=== PATIENT | female | born 2000 | race Two or more races ===

== ENCOUNTER 2022-04-18 13:02 | Emergency (ER) ==
[2022-04-18] MEDS ORDERED: levETIRAcetam 500 MG/5 ML VIAL ONE (13:48)
[2022-04-18 14:28] LABS: #Eosinphils 0.1 thou/uL (0.0-0.7); #Monocytes 0.3 thou/uL (0.11-0.59); #Neutrophils 3.2 thou/uL (1.40-6.50); %Basophils 0.4 % (0.0-1.0); %Eosinophils 1.9 % (0.0-10.0); %Monocytes 5.8 % (0.0-4.0); Hemoglobin 13.6 g/dL (12.0-16.0); Mean Corpuscular HGB CONC 33.2 g/dL (32.0-36.0); Mean Corpuscular Hemoglobin 27.9 pg (25.0-35.0); Mean Corpuscular Volume 83.9 fl (78.0-98.0); Mean Platelet Volume 9.2 fL (7.4-10.4); Platelet Count 212 10x3/uL (130-400); RBC Distribution Width 12.3 % (11.5-14.5); Red Blood Cell (RBC) Count 4.86 mill/uL (4.00-5.20); White Blood Cell (WBC) Count 5.6 10x3/uL (4.8-10.8)
[2022-04-18 14:30] LABS: Bilirubin Negative (Negative); Blood, Urine Negative (Negative); Clarity Clear (Clear); Glucose, Urine (Dipstick) Normal (Negative); Ketone, Urine Negative (Negative); Leukocyte Negative Leu/uL (Negative); Nitrite Negative (Negative); Protein, Urine (Dipstick) Negative (Neg-Trace); Specific Gravity, Urine 1.013 (1.002-1.036); Urobilinogen Normal mg/dL (Less than 2)
[2022-04-18 14:31] LABS: Pregnancy Test - Urine (BHCG) Negative (Negative); Pregu Control Background? CLEAR/WHITE (CLR/WHITE); Pregu Control Bar Appear? YES (CONTROL BAR); Specific Gravity 1.013 (1.002-1.036)
[2022-04-18 14:39] LABS: Amphetamine Not Detected (NotDetected); Barbiturates Screen Not Detected (NotDetected); Benzodiazepine Screen Not Detected (NotDetected); Cocaine Metabolite Screen Not Detected (NotDetected); Methadone Not Detected (NotDetected); Methamphetamine Not Detected (NotDetected); Opiate Screen Not Detected (NotDetected); Oxycodone Screen Not Detected (NotDetected); Phencyclidine (PCP) Not Detected (NotDetected); THC/Cannabinoid Screen Detected (NotDetected); Tricyclic Screen Not Detected (NotDetected)
[2022-04-18 14:39] LABS: Prothrombin Time 14.1 sec (12.0-14.7)
[2022-04-18 14:48] LABS: Carbamazepine-Tegretol Less than 1.9 ug/mL (4.0-12.0)
[2022-04-18 16:20] LABS: Albumin 4.2 g/dL (3.5-5.0)
[2022-04-18 16:21] LABS: Chloride 110 mmol/L (98-107); Potassium 4.1 mmol/L (3.5-5.1); Sodium 139 mmol/L (136-145)
[2022-04-18 16:22] LABS: Calcium 8.8 mg/dL (7.8-10.44); Glucose 89 mg/dL (70-105)
[2022-04-18 16:23] LABS: Globulin 3.1 g/dL (2.4-3.5); Protein, Total 7.3 g/dL (6.0-8.3)
[2022-04-18 16:24] LABS: Anion Gap 12 mmol/L (10-20); Bilirubin, Total 0.3 mg/dL (0.2-1.2); Carbon Dioxide 21 mmol/L (22-29)
[2022-04-18 16:25] LABS: Alkaline Phosphatase 52 U/L (40-100)
[2022-04-18 16:26] LABS: Calc. Creatinine Clearance 0 mL/min (70-130); Estimated GFR 117
[2022-04-18 16:27] LABS: BUN (Urea Nitrogen) 7 mg/dL (7.0-18.7)
[2022-04-18 16:28] LABS: AST (SGOT) 15 U/L (5-34)
[2022-04-18 16:29] LABS: ALT (SGPT) 9 U/L (8-55)
== END 2022-04-18 16:05 | disposition home or self-care (01) ==
LOC: EDBD 13:02 → ERS 13:02
DX: R56.9 Unspecified convulsions (principal)
CPT/HCPCS: 36415; 51701; 70450; 72125; 80053; 80156; 80164; 80177; 80306; 81003; 81025; 83605; 84146; 85025; 85610; 85730; 94760; 96372; 96374; J1953

== ENCOUNTER 2022-05-04 10:44 | Emergency (ER) | payer OTHER, SELFPAY ==
[2022-05-04 12:05] LABS: #Eosinphils 0.1 thou/uL (0.0-0.7); #Lymphocytes 1.8 thou/uL (1.20-3.40); #Monocytes 0.4 thou/uL (0.11-0.59); #Neutrophils 3.4 thou/uL (1.40-6.50); %Basophils 0.4 % (0.0-1.0); %Eosinophils 1.6 % (0.0-10.0); %Lymphocytes 31.1 % (28.0-48.0); %Monocytes 6.4 % (0.0-4.0); %Neutrophils 60.5 % (31.0-61.0); Hemoglobin 13.2 g/dL (12.0-16.0); Mean Corpuscular HGB CONC 32.8 g/dL (32.0-36.0); Mean Corpuscular Hemoglobin 27.3 pg (25.0-35.0); Mean Corpuscular Volume 83.1 fl (78.0-98.0); Mean Platelet Volume 7.7 fL (7.4-10.4); Platelet Count 289 10x3/uL (130-400); RBC Distribution Width 12.1 % (11.5-14.5); Red Blood Cell (RBC) Count 4.83 mill/uL (4.00-5.20); White Blood Cell (WBC) Count 5.7 10x3/uL (4.8-10.8)
[2022-05-04 12:14] LABS: ALT (SGPT) 11 U/L (8-55); AST (SGOT) 14 U/L (5-34); Albumin 4.4 g/dL (3.5-5.0); Alkaline Phosphatase 59 U/L (40-100); Anion Gap 13 mmol/L (10-20); BUN (Urea Nitrogen) 9 mg/dL (7.0-18.7); Bilirubin, Total 0.3 mg/dL (0.2-1.2); Calc. Creatinine Clearance 0 mL/min (70-130); Calcium 9.3 mg/dL (7.8-10.44); Carbon Dioxide 21 mmol/L (22-29); Chloride 107 mmol/L (98-107); Estimated GFR 127; Globulin 2.8 g/dL (2.4-3.5); Glucose 87 mg/dL (70-105); Potassium 4.1 mmol/L (3.5-5.1); Protein, Total 7.2 g/dL (6.0-8.3); Sodium 137 mmol/L (136-145)
== END 2022-05-04 14:19 | disposition home or self-care (01) ==
LOC: ERS 10:44
DX: R56.9 Unspecified convulsions (principal)
CPT/HCPCS: 36415; 70450; 80053; 85025; 93005

== ENCOUNTER 2022-08-05 15:08 | Emergency (ER) | payer MEDICAID, OTHER ==
[2022-08-05] MEDS ORDERED: Acetaminophen 500 MG TAB ONE (16:58)
[2022-08-05 17:01] LABS: MONO NEGATIVE CONTROL ZONE White (Negative) (White); MONO POSITIVE CONTROL Pink Line (Positive) (PINK/RED); Mononucleosis NEGATIVE (NEGATIVE)
[2022-08-05 18:59] LABS: SARS-CoV-2 NAA Rapid Test Not Detected (NotDetected)
== END 2022-08-05 18:04 | disposition home or self-care (01) ==
LOC: ERS 15:08
DX: J20.9 Acute bronchitis, unspecified (principal); Z20.822 Contact with and (suspected) exposure to COVID-19
CPT/HCPCS: 36415; 71045; 86308; 93005